=== PATIENT | male | born 2000 | race Caucasian/White ===

== ENCOUNTER 2025-05-09 03:16 | Emergency (ER) | payer BC ==
[~2025-05-09] VITALS: Ht 165.1 cm; Wt 59.9 kg
[2025-05-09 03:35] VITALS: TEMP 98
[2025-05-09] MEDS ORDERED: ONDANSETRON HCL/PF 4 MG/2 ML VIAL ONE (03:42)
[2025-05-09] MEDS ORDERED: PANTOPRAZOLE 40 MG VIAL ONE (03:42)
[2025-05-09] MEDS ORDERED: DICYCLOMINE HCL 10 MG CAPSULE PO ONE (03:43)
[2025-05-09 03:57] LABS: PLATELET COUNT (AUTO) 184 K/uL (150-450); RED BLOOD CELL COUNT(AUTO) 5.72 MIL/uL (4.5-6.0); RED CELL DISTRIBUTION WIDTH 13.3 % (11.5-15.0); WHITE BLOOD COUNT (AUTO) 8.6 K/uL (4.3-11.0)
[2025-05-09] MEDS: IV NS 0.9% 1,000 ML BAG IV ONE (03:57)
[2025-05-09] MEDS: ONDANSETRON HCL/PF 4 MG/2 ML VIAL IV ONE (03:57)
[2025-05-09] MEDS: PANTOPRAZOLE 40 MG VIAL IV ONE (03:57)
[2025-05-09] MEDS: DICYCLOMINE HCL 10 MG CAPSULE PO ONE (03:57)
[2025-05-09 04:09] LABS: ASPARTATE AMINOTRANSFERASE 14.0 U/L (15-37); CALCIUM, SERUM 9.3 mg/dL (8.5-10.1); CREATININE 1.2 mg/dL (0.6-1.3); SODIUM SERUM 141.0 mmol/L (136-145); TOTAL PROTEIN, SERUM 7.7 g/dL (6.4-8.2); UREA NITROGEN, BLOOD 10.0 mg/dL (7-18)
[2025-05-09] MEDS ORDERED: ONDA4TAB5 PO (04:09)
[2025-05-09] MEDS ORDERED: POLY17PO4 PO (04:09)
[2025-05-09] MEDS ORDERED: PANT40TA2 PO (04:10)
[2025-05-09] MEDS ORDERED: DICY10CA37 PO (04:10)
[2025-05-09 04:35] LABS: BLOOD, URINE NEGATIVE Ery/uL (NEGATIVE); LEUKOCYTE ESTERASE ,URINE NEGATIVE (NEGATIVE); NITRITE, URINE NEGATIVE (NEGATIVE); UGLUCOSE NEGATIVE (NEGATIVE)
[2025-05-09 04:37] LABS: APPEARANCE,URINE CLEAR (CLEAR)
[2025-05-09] MEDS ORDERED: POLYETHYLENE GLYCOL 3350 17 GM POWD.PACK ONE (04:55)
[2025-05-09] MEDS ORDERED: KETOROLAC TROMETHAMINE 15 MG/ML VIAL ONE (04:55)
[2025-05-09] MEDS: POLYETHYLENE GLYCOL 3350 17 GM POWD.PACK PO ONE (05:06)
[2025-05-09] MEDS: KETOROLAC TROMETHAMINE 15 MG/ML VIAL IV ONE (05:06)
[2025-05-09 05:54] VITALS: BP 119/79; O2SAT 98
== END 2025-05-09 05:54 | disposition home or self-care (01) ==
LOC: ER 03:21
DX: R10.9 Unspecified abdominal pain (principal); Z79.899 Other long term (current) drug therapy; Z87.448 Personal history of other diseases of urinary system
CPT/HCPCS: 99284; 96374; 96361; 96375; 85025; 83690; 83735; 81003; 36415; 80053; J1885; J2405; J7030; J2470